=== PATIENT | female | born 1965 | race Caucasian/White ===

== ENCOUNTER 2020-11-13 15:00 | Outpatient (RCR) | payer OTHER, SELFPAY ==
[2020-11-13] MEDS: COVID-19 VACC, MRNA(PFIZER)/PF 30 MCG/0.3 ML SYRINGE IM (07:19)
[2020-12-04] MEDS: COVID-19 VACC, MRNA(PFIZER)/PF 30 MCG/0.3 ML SYRINGE IM (06:55)
== END 2020-11-13 23:59 ==
LOC: IMMUN 15:00
PROVIDERS: Visit Provider Family Medicine
DX: Z23 Encounter for immunization (principal)
CPT/HCPCS: 0001A; 0002A; 91300

== ENCOUNTER 2021-09-15 17:01 | Emergency (ER) | payer OTHER, SELFPAY ==
[2021-09-15 17:02] VITALS: BP 119/76; PULSE 100; RESP 18; TEMP 36.2; O2SAT 98; BMI 22.2
--- NOTE | 2021-09-15 17:41 | RAD_ITS ---
EXAM: XR RIGHT FINGERS, 2 OR MORE VIEWS CLINICAL INDICATION: FALL Technologist Notes PT TRIPPED OVER SIDEWALK FALLING DOWN. RT MIDDLE FINGER PAIN. TECHNIQUE: Frontal, lateral and oblique views of the fingers of the right hand. This report was created using [employer] report generation technology. COMPARISON: None. FINDINGS: BONES/JOINTS: Dislocation of the third digit at the level of the PIP joint. Overlying soft tissue edema. Small avulsive fracture of the head of the distal portion of the 3rd proximal phalanx. No sclerotic or destructive changes observed. SOFT TISSUES: Unremarkable. No soft tissue swelling or gas. No radiopaque foreign body. RAD/Finger(s) Min 2 Views IMPRESSION: Dislocation of the third digit at the level of the PIP joint. Overlying soft tissue edema. Small avulsive fracture of the head of the distal portion of the 3rd proximal phalanx. Electronically Signed: Ranjeet Hillman MD at 17:57 EST , Service support ,
[2021-09-15] MEDS: Lidocaine 1% (20 ml mdv) 20 ML Vial INFILT (20:20)
--- NOTE | 2021-09-15 20:40 | RAD_ITS ---
EXAM: XR RIGHT FINGERS, 2 OR MORE VIEWS CLINICAL INDICATION: Injury/Pain Technologist Notes injury to right 3rd digit from fall, post reduction. TECHNIQUE: Frontal, lateral and oblique views of the fingers of the right hand. This report was created using [employer] report generation technology. COMPARISON: Study done earlier FINDINGS: BONES/JOINTS: Small avulsive fracture of the head of the distal portion of the 3rd proximal phalanx. Preservation of the joint space. No sclerotic or destructive changes observed. SOFT TISSUES: Successful reduction. Overlying soft tissue swelling of the joint. No radiopaque foreign body. RAD/Finger(s) Min 2 Views IMPRESSION: 1. Successful reduction. Overlying soft tissue swelling of the joint. 2. There is a presence of a volar plate fracture. Electronically Signed: Ranjeet Hillman MD at 20:55 EST , Service support ,
--- NOTE | 2021-09-15 21:25 | EX.ED.GENINJ ---
HPI History of Present Illness Chief Complaint: Fall Informant: patient Onset/Context/Timing Onset: Today Mechanism/Context: Fall Location of pain/injuries: Right hand Quality of Pain: Aching Location: Jaw, chin, right middle finger Worsened by: Movement Relieved by: rest Associated Symptoms Associated Symptoms: Negative for Parasthesias, Weakness, Loss of function, Inability to ambulate, Loss of consciousness and Amnesia Narrative Narrative: Patient presents after a fall that occurred today. Patient states she tripped over uneven sidewalk. Patient states she fell forward. Patient hit her chin on the sidewalk. Patient thinks she cracked her left lower molar. Patient admits to some pain in her jaw. Patient also hit her right hand. Patient has a deformity of her right middle finger. Patient denies any paresthesias or weakness. Patient denies any loss of consciousness. Patient states her last tetanus was within 5 years. Tetanus Immunization: <5 years [facility] Medical History (Updated 09/15/21 @ 22:[address] Klaus Hdez DO) Brain tumor (benign) Medical History no medical history Home Medications naproxen 500 mg PO BID PRN #20 tab 09/15/21 [Rx Last Taken Unknown] Allergy/AdvReac Type Severity Reaction Status Date / Time atropine Allergy Rash Verified 09/15/21 17:01 Surgical History (Updated 09/15/21 @ 22:[address] Klaus Hdez DO) Hx of brain surgery Social History Smoking Status: Unknown if ever smoked ROS ROS ED Constitutional Constitutional ED: Denies chills or fever(s) Eyes Eyes: Denies blurry vision or change in vision ENT ENT ED: Denies rhinorrhea or sore throat Cardiovascular Cardiovascular: Denies chest pain or palpitations Respiratory/Chest Respiratory/Chest: Denies cough or dyspnea Gastrointestinal Gastrointestinal: Denies nausea or vomiting Genitourinary Genitourinary ED: Denies dysuria or hematuria Musculoskeletal Musculoskeletal: Denies back pain or neck pain Integumentary Denies abscess or rash Neurologic Neurologic: Denies headache(s) or weakness Allergic/Immunologic Allergic/Immunologic ED: Denies mouth swelling or urticaria EXAM Physical Exam Const Vital Signs: 09/15/21 17:02 09/15/21 18:40 01/19/22 21:41 Temperature 97.1 F L Temperature Source Temporal Pulse Rate 100 90 Respiratory Rate 18 15 Respiratory Effort Normal Non-Labored Blood Pressure 119/76 136/73 H Blood Pressure Mean 90 Pulse Ox 98 98 Oxygen Delivery Method Room Air Positive well nourished and well developed General Appearance ED: well developed HEENT HEENT Narrative: There is some tenderness over the mandible. Patient is able to hold a tongue blade between her teeth against resistance. There is no bony crepitance or step-off. There is no deformity noted. Neck full ROM Resp normal respiratory effort and clear to auscultation bilaterally Cardio regular rhythm Rate: regular rate GI non-tender Palpation: soft Extremity Extremity Narrative: There is an obvious deformity of the right middle finger at the PIP joint. Capillary refill was less than 2 seconds in all digits. Sensation was intact to light touch in all digits. Range of motion was limited in all motion of the right middle finger secondary to pain. Neuro oriented x3, CN's II-XII intact bilaterally, moves all extremities, no focal motor deficits and no sensory deficits noted Sensorium / Orientation: alert Psych mental status grossly normal Skin Skin Narrative: There is a 2.5 cm full-thickness laceration over the anterior chin in the midline. There is moderate gapping of the wound margins. There is no foreign body noted. There is some mild bleeding noted. There is no bony crepitance or step-off. PROC Procedures Lacerations Chin: Length: 2.5 cm Depth: Sub Q Shape: Linear Prep: Sterile Conditions and Chlorhexadine Laceration repair: Irrigated, Lidocaine and Local Number of Sutures/Claude: 5 Suture Information: Ethilon and 5-0 Upper Extremity Splints Upper Extremity Splint: Alumifoam Splint Fabrication: Pre-fabricated Location: Right Other Procedures Procedure(s): The right middle finger was anesthetized 1% plain lidocaine via digital block. The dislocation was reduced by myself. Patient tolerated procedure well. Aluminum foam splint was applied. The third and fourth fingers were zachary taped together. Neurovascular exam was intact before and after the procedure. MDM MDM MDM Narrative Medical decision making narrative: X-rays of the right middle finger were obtained. There are 3 views. On my interpretation, it showed a dislocation of the PIP joint. There is a small avulsion fracture at the head of the distal aspect of the third proximal phalanx. Radiologist also interpreted the x-rays and agrees. The right middle finger was anesthetized 1% lidocaine via digital block. The dislocation was reduced. Patient tolerated the procedure well. Patient was placed in AlumaFoam splint. The third and fourth digits were zachary taped together. Neurovascular exam was intact before and after the procedure. Repeat x-rays were obtained. There are 3 views. On my interpretation, there is successful reduction. There is a volar plate fracture. Radiologist also interpreted the x-ray and agrees. The wound was cleaned and irrigated with copious amounts of normal saline. The wound was anesthetized with 1% plain lidocaine locally. The wound was closed with 5 simple interrupted #5-0 nylon sutures under sterile technique. Patient tolerated the procedure well. Bacitracin dressing was applied. Patient was instructed to keep the wound clean and dry. Patient was instructed to ice and elevate the right hand. Patient was given a prescription for Naprosyn. Patient was instructed to follow-up with her primary care physician in 5 days for wound recheck and suture removal. Patient was also given referral for orthopedics. Patient and family understood and were agreeable with the plan. All questions were answered. Radiography Diagnostic Testing: Clinical Impression(s) from Imaging Studies Finger X-Ray 09/15/21 17:41 IMPRESSION: Dislocation of the third digit at the level of the PIP joint. Overlying soft tissue edema. Small avulsive fracture of the head of the distal portion of the 3rd proximal phalanx. Electronically Signed: Ranjeet Hillman MD at 17:57 EST , Service support , Finger X-Ray 09/15/21 20:40 IMPRESSION: 1. Successful reduction. Overlying soft tissue swelling of the joint. 2. There is a presence of a volar plate fracture. Electronically Signed: Ranjeet Hillman MD at 20:55 EST , Service support , Discharge Plan Triage Chief Complaint: Fall ED Provider: Klaus Hdez Dx/Rx/DC Orders Clinical Impression: Chin laceration, Dislocation of right middle finger Instructions: ED Laceration, Chin, Suture or Tape, ED Finger Dislocation Prescriptions: New naproxen 500 MG tablet 500 mg PO BID PRN Qty: 20 RF: 0 Primary Care Provider: Care Physician,No Primary Referrals: Aristeo Hudson MD [STAFF PHYSICIAN] - 5 Days for suture removal Zaire Birmingham DO [STAFF PHYSICIAN] - 5-7 Days Care Physician,No Primary [Primary Care Provider] - Disposition Disposition: Home, Self Care Discharge Date/Time: 09/15/21 21:42
[2021-09-15 21:41] VITALS: BP 136/73; PULSE 90; RESP 15; O2SAT 98
== END 2021-09-15 21:42 | disposition home or self-care (01) ==
PROVIDERS: Emergency Provider Emergency Medicine; Visit Provider Emergency Medicine
DX: S63.282A Dislocation of proximal interphalangeal joint of right middle finger, initial encounter (principal); S01.81XA Laceration without foreign body of other part of head, initial encounter; W01.198A Fall on same level from slipping, tripping and stumbling with subsequent striking against other object, initial encounter
CPT/HCPCS: 26770; 12011; 73140; 99284

== ENCOUNTER 2021-11-23 10:00 | Outpatient (RCR) | payer OTHER, SELFPAY ==
--- NOTE | 2021-10-04 09:39 | HP.OTEVAL_ITS ---
Patient's Visit Information CORINNE ESCUDERO is a 56 year old F, referred to Occupational Therapy by Dr. Ziare Birmingham, DO, with a diagnosis of right MF PIP dislocation. Date of Evaluation: 10/04/21 Occupational Therapist: Kelsy Brannon, DANICA/Patti, CHT - Subjective this 56 year old female was seen for OT eval with dx of right MF PIP dislocation- pt states DOI was - pt states she tripped and fell- pt states she went to ER and had it reduced. pt states she was placed in a finger splint for a few days and now has been zachary taping her fingers together- pt is right handed. 2weeks and 5 days from injury. pt states she is limited with use of her right hand due to the limited ROM and inability make a fist-. pt would like to gain full fist so she can start playing golf in the spring. - ADLs Kitchen: Chop with knife, Peel fruits & vegetables, Open jars, Open bottle caps Yard: Use shovel Comments: can do it but difficult Miscellaneous: Handle money (change), Hold change - Pain right 2 Pain Intensity Range: 5 - ROM MP: right 0/75 left 0/80 PIP: right -6/45 left 0/100 DIP: right 0/3 left 0/70 ROM Comments: pt demo limited functional ROM following a left PIP dislocation of right MF - Strength Child Care: right NT left 60# Lateral Pinch: right NT left 10# Tripod Pinch: right NT left 12# - Edema PIP: right 7.0 left 5.5 - Sensation Sensation Comments: denies - Quick DASH-Disab of Arm,Shoulder& Hand Quick DASH Score: 63.3325 - Goals Goal:: pt will demo a right consumer electronics merchandiser strength at 45# or greater by d.c to increase pts ind. with ADls and IADLS by d/c. pt will demo a right tripod pinch at 4# or greater by d/c to increase pts ind. with ADls and IADLS by d.c Goal:: pt will demo a increase in right MF PIP flexion to 80* or greater to increase the ability to form composite fist to perform ADLS ind. by d/c. pt will demo a increase in right MF DIP flexion to 50* or greater to increase the ability to form composite fist to perform ADLs and IADls by d.c Goal:: pt will report no pain greater than 1/10 with use of right hand with ADLs and IADls by d/c Goal:: pt will demo a reduction in right MF edema to 6.0 or less to increase ind. with motion by d/c. pt will demo understanding of edema control erica. by end of 1st session. - Rehabilitation General Assessment: pt arrives 2 weeks and 5 days from DOI- pt is limited with functional use of right hand due to limited ability to form a composite fist and strength due to healing structures- pt demo need for skilled OT services 1-2x week for 6 weeks to ensure pt reaches maximal rehab potential and returns to her PLOF with ADLs and IADLS. Today therapist ed. pt on edema control erica. and to initiate ROM of PIP and DIP working with tendon glides- pt ed to hold end range of motion for about 10 sec and working up to holding end range for 20 sec. pt demo understanding and agree to POD. pt will use zachary tape for daily tasks. Rehabilitation Potential: Good - Anticipated Interventions A/AAROM/PROM, Strengthening, Edema Control, Triggerpoint Release, Modalities, Orthoses, Joint Protection/Energy Conservation, Fine Motor Coord/Amor, Education re Diagnosis, Caregiver Training, Home Program - Visit Plan Frequency: 1-2x /Week Duration: 6 Weeks TEXT: Thank you for the opportunity to evaluate your patient. For Medicare and Medicare HMO plans, please review the plan of care and approve it. It will need to be FAXED BACK to us at [phone] for Medicare purposes. Please let me know if there are questions or concerns regarding this plan of car karine. Physician Signature: Date:
--- NOTE | 2022-01-07 09:10 | HP.OT.NRP ---
CORINNE ESCUDERO was seen in my office for initial evaluation on 10/04/21. The following Plan of Care was established for this patient: Initial Frequency: 1-2x /Week Initial Duration: 6 Weeks Plan: blocking. place and hold. resistive spray gun operator Anticipated Interventions: A/AAROM/PROM, Strengthening, Edema Control, Triggerpoint Release, Modalities, Orthoses, Joint Protection/Energy Conservation, Fine Motor Coord/Amor, Education re Diagnosis, Caregiver Training, Home Program This patient was last seen in our office 11/23/21. Pertinent comments regarding their Occupational therapy will appear below: pt was seen for 9 OT visits- pt was given static progressive orthosis and dynamic orthosis to increase ROM of pts R MF ROM- RMF PIP flex 65*, 64* after tx RMF DIP flex 40*, 36* after tx 78* MF PIP Passively pt continued to make slow gains in her ROM but functionally was using her hand more for daily tasks. Pt was last seen 11/23/21 and has not scheduled any further apts - pt d/c due to time lase in services. [ End ] At this point I will be discontinuing this patient from occupational therapy. I would be happy to see this patient again in the future if found appropriate by the physician. Thank you! Kelsy Brannon, OTR/L, CHT
== END 2021-11-23 19:00 | disposition home or self-care (01) ==
LOC: OT 10:00
PROVIDERS: Referring Provider Student in an Organized Health Care Education/Training Program; Visit Provider Student in an Organized Health Care Education/Training Program
DX: S62.252D Displaced fracture of neck of first metacarpal bone, left hand, subsequent encounter for fracture with routine healing (principal)
CPT/HCPCS: 97035; 97110; 97140; 97166; 97530; 97760

== ENCOUNTER 2022-02-25 11:29 | Emergency (ER) | payer OTHER, SELFPAY ==
[2022-02-25 11:30] VITALS: BP 131/79; PULSE 100; RESP 14; TEMP 36.1; O2SAT 99; BMI 21.7
--- NOTE | 2022-02-25 12:28 | ED.VIS.STROK ---
HPI History of Present Illness Chief Complaint: Numb/Ting Informant: patient Onset/Context/Timing Onset: Today Context: Sudden Onset Timing: Intermittent Quality and Location: Positive for Right Face Paresthesia and Right Arm Parasthesia Current Severity: Gone Maximum Severity: Mild Associated Symptoms Associated Symptoms: Negative for Headache, Nausea, Vomiting or Chest Pain Narrative Narrative: 56-year-old female history of a prior resected astrocytoma. She had this done about 8 years ago at [facility]. She follows up with [facility] in [place]. Today she was is getting a follow-up MRI prior to the test that she was driving there at about a 5 to 10-minute episode of right hand tingling and numbness and right face that is now completely resolved. She denies any headache. No speech changes. No visual changes. And now is currently symptom-free. She had the MRI done after the symptoms. She denies any other complaints and has no other significant medical history. Prior similar symptoms: No Recent Illness/Hospitalization: No PFSH PFSH Medical History Brain tumor (benign) Home Medications NK 02/25/22 [History Last Taken Unknown] Allergy/AdvReac Type Severity Reaction Status Date / Time atropine Allergy Rash Verified 02/25/22 11:32 Surgical History Hx of brain surgery Social History Smoking Status: Unknown if ever smoked ROS ROS ED ROS Narrative Right hand and facial numbness resolved. Review of Systems ROS Unobtainable: Denies due to encephalopathy Constitutional Constitutional ED: Denies chills Eyes Eyes: Denies blurry vision ENT ENT ED: Denies ear pain Cardiovascular Cardiovascular: Denies chest pain Respiratory/Chest Respiratory/Chest: Denies cough or dyspnea Gastrointestinal Gastrointestinal: Denies abdominal pain Genitourinary Genitourinary ED: Denies dysuria Musculoskeletal Musculoskeletal: Denies arthralgias Integumentary Denies abscess Neurologic Neurologic: Denies headache(s) Psychiatric Psychiatric: Denies anxiety Endocrine Endocrinology: Denies polydipsia Hematologic/Lymphatic Hematologic/Lymphatic: Denies easy bleeding Allergic/Immunologic Allergic/Immunologic ED: Denies mouth swelling EXAM Physical Exam Narrative Exam Narrative: 36-year-old female vital signs stable afebrile. Initial blood pressure 131/79. Pulse ox 90% on room air no signs hypoxia. H EENT exam normal. No facial droop. Normal speech. No tingling. Extraocular motions are intact. Neck nontender. Lungs clear to auscultation. Heart regular rhythm rate about 90 no murmur. Abdomen soft nontender. Moving all 4 extremities. Neurologically she is awake alert and oriented. Normal speech. No facial droop. 5 out of 5 robotics application engineer strength bilaterally. Dorsi plantarflexion intact bilaterally. Fingertip to nose [id number] within normal limits. NIH score is 0. Sitting in bed she stood up walked across the room had no difficulty walking. No ataxia. No trouble with her balance. Const Vital Signs: 02/25/22 11:30 Temperature 97.0 F L Temperature Source Temporal Pulse Rate 100 Respiratory Rate 14 Blood Pressure 131/79 H Blood Pressure Mean 96 Pulse Ox 99 Oxygen Delivery Method Room Air Positive well nourished and well developed; Negative for obese, cachectic, contractures or unkempt General Appearance ED: well developed; Negative for unkempt, cachectic or contractures Nutritional Appearance: Negative for cachectic or obese HEENT Reports moist mucous membranes atraumatic; Negative for trauma Eyes PERRL and EOMs intact bilaterally General Eye ED: Negative for pale conjunctiva or scleral icterus Neck no lymphadenopathy, supple and no JVD Chest Wall inspection of chest normal and palpation of chest normal Resp normal respiratory effort and clear to auscultation bilaterally Auscultation: Negative for rales, rhonchi or wheezes Cardio no murmurs Rate: regular rate; Negative for bradycardia or tachycardic Rhythm: regular rhythm Heart Sounds: S1 normal and S2 normal GI normal to inspection, nondistended, normoactive bowel sounds, soft to palpation, non-tender, non-distended and no masses Auscultation: normoactive bowel sounds Palpation: Negative for tender, guarding, hepatomegaly, splenomegaly or mass Back/Spine no CVA tenderness General Back: Negative for CVA tenderness Cervical Spine: Negative for cervical spine tenderness Thoracic Spine / Upper Back: Negative for thoracic spinal tenderness Lumbar Spine / Lower Back: Negative for lumbar spinal tenderness Extremity normal to inspection General Extremety ED: Negative for deformity, edema or tenderness General Extremity: Negative for deformity or edema Neuro oriented x3, CN's II-XII intact bilaterally and no sensory deficits noted Sensorium / Orientation: alert, oriented to person, oriented to place and oriented to time; Negative for orientation impaired, confused, lethargic or stuporous Speech: speech normal Gait (Neuro): normal gait Sensory Exam: No sensory level loss detected Motor Exam: strength 5/5 throughout; Negative for general weakness or strength abnormal Psych mental status grossly normal Appearance: Negative for unkempt Attitude: No agitated Mood & Affect: Negative for depressed Attention / Concentration: Negative for other Skin no wounds General Skin Exam: Negative for jaundice Lesions: no lesions Rashes: no rashes STROKE Vital Signs/Narrative: Vital Signs Temp Pulse Resp BP Pulse Ox O2 Del Method 02/25/22 11:30 97.0 F L 100 14 131/79 H 99 Room Air NIH is normal. Symptoms have resolved. She literally just had an MRI about an hour ago. After her symptoms. I do not think she needs other imaging. We will try to get a read on that because it was done at the [facility] facility. Inital Vital Signs reviewed: Yes MDM MDM MDM Narrative Medical decision making narrative: 56-year-old with transient right facial and hand numbness. Lasted 5 to 10 minutes. Completely resolved. After the episode she had a previously scheduled MRI to evaluate her for a prior astrocytoma which she had removed. Her exam is benign. She has a completely normal neurologic exam. Screening left will be obtained. We are trying to get the read from the MRI from the [facility]. Repeat exam at 2:30 pm patient is doing well. Neurologic exam remains normal. She has had no further symptoms. Patient doing well at 3:48 PM. Exam remains normal. We did receive her MRI results from the [facility] and they were unremarkable. There is no recurrent disease. She has no neurological findings. She will let the neurologist at [facility]. She knows return if worse. Lab Data Attestation: I reviewed the patient's lab results. Lab results narrative: CBC White count 9 H&H 14 and 45. Electrolytes show a gap of 7. Normal BUN and creatinine. Normal glucose of 100. EKG was unremarkable. Labs: Laboratory Results - last 24 hr 02/25/22 02/25/22 02/25/22 12:30 12:30 13:43 WBC 9.1 RBC 5.04 Hgb 14.8 Hct 45.7 MCV 90.7 MCH 29.4 MCHC 32.4 RDW Std Deviation 43.0 RDW Coeff of Vika 12.9 Plt Count MPV 10.2 Immature Gran % (Auto) 0.200 Neut % (Auto) 80.9 H Lymph % (Auto) 12.4 L Lamar % (Auto) 6.1 Eos % (Auto) 0.1 Baso % (Auto) 0.3 Absolute Neuts (auto) 7.3 Absolute Lymphs (auto) 1.12 Nucleated RBC % 0 Platelet Estimate ADEQUATE Sodium Cancelled 139 Potassium Cancelled 4.0 Chloride Cancelled 106 Carbon Dioxide Cancelled 26.0 Anion Gap Cancelled 7 BUN Cancelled 10 Creatinine Cancelled 0.73 Estim Creat Clear Calc Cancelled 79.60 Est GFR (MDRD) Af Amer Cancelled 106 Est GFR (MDRD) Non-Af Cancelled 88 BUN/Creatinine Ratio Cancelled 13.7 Glucose Cancelled 100 Calcium Cancelled 9.1 Rhythm Strip Rhythm Strip: Sinus Rhythm Rate: 90 Ectopy: None EKG Initial EKG: Attestation: I personally reviewed and interpreted this EKG as follows: Interpretation: Sinus Rhythm and No Acute Injury Pattern Comments: Normal sinus rhythm rate of 90. No acute signs of AK, ischemia nor any dysrhythmia. Discharge Plan Triage Chief Complaint: Numb/Ting ED Provider: Issac Alberto Dx/Rx/DC Orders Clinical Impression: Paresthesia of hand Instructions: ED Paraesthesias Prescriptions: No Action NK Primary Care Provider: Care Physician,No Primary Referrals: Care Physician,No Primary [Primary Care Provider] - Activity Restrictions/Additional Instructions: Uncertain cause that would cause your numbness today. Your exam is normal. Your labs and MRI from the [facility] were unremarkable. As well as her EKG. Follow-up with your neurologist. If you have worsening symptoms return. Disposition Disposition: Home, Self Care
--- NOTE | 2022-02-25 12:41 | EKG12_ITS ---
Test Reason : NT Blood Pressure : / mmHG Vent. Rate : 090 BPM Atrial Rate : 090 BPM P-R Int : 140 ms QRS Dur : 088 ms QT Int : 384 ms P-R-T Axes : 075 -05 061 degrees QTc Int : 469 ms Normal sinus rhythm Normal ECG Confirmed by ADAM VIGIL, DAVID ([id number]), film editor supervisor TESS SAENZ ([id number]) on 03/01/2022 10:11:03 AM Referred By: Confirmed By:DAVID MEDINA MD
[2022-02-25 13:00] LABS: Absolute Lymphocyte Count 1.12 X10^3/uL (0.83-4.51); Absolute Neutrophil Count 7.3 X10^3/uL (2.0-7.7); Basophil# 0.03 X10^3/uL; Basophil% 0.3 % (0-1); Eosinophil# 0.01 X10^3/uL; Eosinophils% 0.1 % (0-5); Hematocrit 45.7 % (37-47); Hemoglobin 14.8 g/dL (12.0-15.0); Lymphocyte # 1.12 X10^3/ul (0.83-4.51); Lymphocyte % 12.4 % (19-41); Mean Corp Hgb Conc 32.4 g/dL (32-36); Mean Corpuscular Hgb 29.4 pg (27.0-32.0); Mean Corpuscular Volume 90.7 fL (81-99); Mean Platelet Vol. 10.2 fl (6.2-12.0); Monocyte# 0.55 X10^3/uL; Monocyte% 6.1 % (0-10); NRBC Flagged by Analyzer 0 % (0-5); Neutrophil # 7.32 X10^3/uL (2.7-7.7); Neutrophil % 80.9 % (47-70); POSITIVE COUNT YES; RBC Distribution Width CV 12.9 % (11.6-14.6); Red Blood Count 5.04 M/mm3 (4.2-5.4); White Blood Count 9.1 K/mm3 (4.4-11.0)
[2022-02-25 13:26] LABS: Differential Indicated SCAN CRITERIA MET; Platelet Estimate ADEQUATE (ADEQ)
--- NOTE | 2022-02-25 13:29 | CM.ED ---
Social Work Note Reason for Referral: No PCP SW reviewed chart and pt has no PCP Listed. SW in to speak with pt. Pt confirms she has no PCP. SW provided pt with PCP list. Sana Melton STRAIGHT TOOTH GEAR GENERATOR OPERATOR, SHOW OPERATIONS SUPERVISOR
[2022-02-25 14:01] LABS: Anion Gap 7 (5-15); BUN 10 mg/dL (7-18); BUN/Creat Ratio 13.7 RATIO (10-20); Calcium,Total 9.1 mg/dL (8.5-10.1); Chloride 106 mmol/L (98-107); Creatinine, Serum 0.73 mg/dL (0.55-1.02); EST Glomerular Filtration Rate 88 mL/min (>60); Est Glom Filt Rate - Afr Amer 106 mL/min (>60); Glucose 100 mg/dL (74-106); Sodium Level 139 mmol/L (136-145)
--- NOTE | 2022-02-25 15:24 | NURSING ---
PATIENT ARRIVED WITH MRI DISC FROM [facility]. CALLED TO GET A READING OR LET DR GRUBER TALK TO RADIOLOGIST. REPORT WAS FAXED AT 1402. WE NEVER RECEIVED IT CALLED AGAIN AND NO RETURN CALL OR FAX CALLED AGAIN AT 1520. HAD TO LEAVE A MESSAGE.
== END 2022-02-25 15:54 | disposition home or self-care (01) ==
PROVIDERS: Emergency Provider Emergency Medicine; Visit Provider Emergency Medicine
DX: R20.2 Paresthesia of skin (principal)
CPT/HCPCS: 36415; 80048; 85025; 93005; 99282